=== PATIENT | male | born 1980 | race Caucasian/White ===

== ENCOUNTER 2017-01-19 08:08 | Emergency (ER) | payer OTHER ==
[~2017-01-19] VITALS: Ht 170.2 cm; Wt 99.3 kg
[~2017-01-19 08:08] MED LIST: ABL15; ATV5X PO; CARB400T3 PO; EFFSR150
[2017-01-19] MEDS ORDERED: KETOROLAC TROMETHAMINE 30 MG/ML VIAL IV STA (08:16)
[2017-01-19] MEDS ORDERED: SODIUM CHLORIDE 0.9% 1000ML 1,000 ML IV STA (08:16)
[2017-01-19 08:18] VITALS: TEMP 36.4; O2SAT 95; Ht 170.2 cm; Wt 99.3 kg
[2017-01-19] MEDS ORDERED: LIDO/EPINEPHRINE/SOD BICARB 20 ML VIAL INFIL ONE (08:37)
[2017-01-19] MEDS ORDERED: XYLOCAINE 1%/SOD BICARB 20 ML VIAL INFIL ONE (08:38)
[2017-01-19] MEDS ORDERED: ARIP30TA3 PO (09:07)
[2017-01-19] MEDS ORDERED: VENL150C56 PO (09:07)
--- NOTE | 2017-01-19 09:15 | DIAGNOSTIC IMAGING REPORT ---
LEFT FINGER(S) MIN 2 VIEWS ROUTINE CLINICAL HISTORY: fifth finger injury/laceration COMPARISON: None. DISCUSSION: Soft tissue laceration adjacent to the distal phalanx. This primarily at the plantar aspect of the distal left fifth finger. There is debris within the wound. There is no acute bony abnormality. No evidence for fracture or dislocation. There is no bony laceration. IMPRESSION: Soft tissue laceration adjacent to the distal phalanx. No acute bony abnormality. Scattered debris within the wound Electronically signed by: Son Guerrero M.D. 01/19/2017 9:14 AM Dictated Date/Time: 01/19/2017 9:12 AM
[2017-01-19 09:59] VITALS: BP 116/57; PULSE 65
--- NOTE | 2017-01-19 10:13 | EMERGENCY ROOM VISIT NOTE ---
ED Visit Note First contact with patient: 08:10 CHIEF COMPLAINT: Left fifth finger laceration HISTORY OF PRESENT ILLNESS: This 37-year-old male presents to the ER with chief complaint of a laceration to his left fifth finger. The patient states that he was removing a screw with a bolt attached when the bolt came loose and cut his left fifth finger. The patient thinks his tetanus status is up-to-date. The patient denies any numbness and tingling in the finger. The patient states that he does not do well with blood and therefore when he looked at it he felt lightheaded and vomited. He currently denies any lightheadedness or dizziness. The patient is right-hand dominant. REVIEW OF SYSTEMS: 6 system review was performed and was negative unless stated otherwise in history of present illness. PMH: The patient is healthy; hernia repair SOCIAL HISTORY: Patient lives with his parents. The patient denies any tobacco or alcohol use. PHYSICAL EXAM: Vital Signs: Were reviewed Reviewed Nurse's notes. GENERAL: 37 year white male appears in no acute distress. MENTAL Status: Alert and oriented 3. LEFT FIFTH FINGER: There is a 1.5 cm long laceration on the palmar aspect of the distal phalanx . the edges gape apart with traction. There is no foreign material in the wound and it looks clean. There is no bleeding. No deep structures such as tendons or nerves are seen in the base of the wound. Extension of the finger is full and strong. EMERGENCY DEPARTMENT COURSE: The patient was evaluated. The patient's EMR was reviewed. The patient had a tetanus immunization 5 years ago. X-ray of the left fifth finger was ordered and interpreted by the radiologist and myself. DIAGNOSTICS:LEFT FINGER(S) MIN 2 VIEWS ROUTINE CLINICAL HISTORY: fifth finger injury/laceration COMPARISON: None. DISCUSSION: Soft tissue laceration adjacent to the distal phalanx. This primarily at the plantar aspect of the distal left fifth finger. There is debris within the wound. There is no acute bony abnormality. No evidence for fracture or dislocation. There is no bony laceration. IMPRESSION: Soft tissue laceration adjacent to the distal phalanx. No acute bony abnormality. Scattered debris within the wound Electronically signed by: Son Guerrero M.D. 01/19/2017 9:14 AM PROCEDURE:Wound Repair: Was repaired by PA student under my direct supervision. Complexity: Basic. Verbal consent was obtained after the risks and benefits were explained, including but not limited to bleeding, scarring, infection, pain, and bone/joint /nerve damage. The skin was prepped with betadine and a sterile field set. The wound was anesthetized with 4.8 ml of 1% buffered lidocaine. With direct pressure the bleeding subsided. Copious irrigation was performed using sterile saline. The wound was explored for foreign bodies and none found. Debridement was not performed. The wound edges were approximated using 5-0 Ethilon with 6 simple interrupted sutures. Hemostasis and excellent approximation was achieved. Antibacterial ointment and a sterile dressing applied. Detailed wound care instructions and signs and symptoms of infection reviewed with the patient. No complications and the patient tolerated the procedure well. The patient was informed of the x-ray findings. The patient was discharged home in stable condition. DIAGNOSIS: 1.5 cm left fifth Finger laceration DISCHARGE INSTRUCTIONS & TREATMENT: Watch the area carefully for signs of infection such as redness, swelling, or tenderness. Return if any of these appear for re-evaluation and consideration of antibiotic therapy. The stitches should be taken out in 10 days. Keep the wound covered with Bacitracin ointment and a bandage for 3 days. Read the wound care general instructions that you were given also. Current/Historical Medications Scheduled Aripiprazole (Abilify), 1 TAB PO QAM Carbamazepine Extended Release (Tegretol Xr), 600 MG PO QAM Venlafaxine Hcl (Effexor Extended Rel), 1 CAP PO DAILY Scheduled PRN Lorazepam (Lorazepam), 0.5 MG PO BID PRN for Anxiety/Agitation Allergies Coded Allergies: Sulfamethoxazole w/Trimethoprim (Verified Allergy, Unknown, RASH, 01/19/17) Vital Signs Date Time Temp Pulse Resp B/P (MAP) Pulse Ox O2 Delivery O2 Flow Rate FiO2 01/19/17 09:59 65 116/57 Room Air 01/19/17 08:18 36.4 72 20 127/59 95 Room Air Laboratory Results Test 01/19/17 08:16 Medications Administered Medications (Trade) Dose Ordered Sig/Carleen Route Start Time Stop Time Status Last Admin Dose Admin Lidocaine/ Epinephrine (Buffered Xylocaine/ Epinephrine 1% Inj) 20 ml STK-MED ONCE INFIL 01/19/17 08:37 01/19/17 08:38 DC 01/19/17 08:37 20 ML Lidocaine HCl (Buffered Lidocaine 1% Inj) 20 ml STK-MED ONCE INFIL 01/19/17 08:38 01/19/17 08:39 DC 01/19/17 08:38 20 ML Departure Information Referrals Naresh Meyer M.D. (PCP) Patient Instructions My [facility]
== END 2017-01-19 10:31 | disposition home or self-care (01) ==
LOC: C.EDB 08:09 → C.EDA 10:31
DX: S61.217A Laceration without foreign body of left little finger without damage to nail, initial encounter (principal); W45.8XXA Other foreign body or object entering through skin, initial encounter